=== PATIENT | male | born 1985 | race African-American/Black ===

== ENCOUNTER 2020-05-27 16:23 | Emergency (ER) | payer OTHER ==
[~2020-05-27] VITALS: Ht 172.7 cm; Wt 59.0 kg
[2020-05-27 16:34] VITALS: BP 130/74
[2020-05-27] MEDS ORDERED: AMOX/CLAVULANATE 875 MG TABLET PO ONE (17:00)
[2020-05-27] MEDS ORDERED: TDAP [DIPH/PERTUSSIS/TET] 0.5 ML VIAL IM ONE ×2 (17:00→17:08)
[2020-05-27] MEDS ORDERED: AMOX/CLAVULANATE 875 MG TABLET ONE (17:08)
--- NOTE | 2020-05-27 17:23 | NUR ---
Patient discharged to home in stable condition. Written and verbal after care instructions given. Patient verbalizes understanding of instruction.
== END 2020-05-27 17:23 | disposition home or self-care (01) ==
LOC: ER 16:30
DX: S01.21XA Laceration without foreign body of nose, initial encounter (principal); F17.200 Nicotine dependence, unspecified, uncomplicated; W54.0XXA Bitten by dog, initial encounter; Y93.89 Activity, other specified; Y92.89 Other specified places as the place of occurrence of the external cause; Y99.8 Other external cause status
CPT/HCPCS: 90471; 90715; 99283; 99406; A6403